=== PATIENT | female | born 2000 | race Caucasian/White ===

== ENCOUNTER 2024-01-21 14:45 | Emergency (ER) | payer SELFPAY ==
[~2024-01-21] VITALS: Ht 182.9 cm; Wt 72.1 kg
[2024-01-21] MEDS ORDERED: MORPHINE SULFATE INJ 4 MG/ML DISP.SYRIN ONE (15:31)
[2024-01-21] MEDS: MORPHINE SULFATE INJ 2 MG/ML DISP.SYRIN IV ONE (15:37)
[2024-01-21] MEDS ORDERED: HYDR-4209 PO (17:21)
[2024-01-21] MEDS ORDERED: KETO10TA2 PO (17:21)
[2024-01-21 17:28] VITALS: BP 131/74; TEMP 97.8; O2SAT 98
== END 2024-01-21 17:28 | disposition home or self-care (01) ==
LOC: ER 14:50
DX: S52.511A Displaced fracture of right radial styloid process, initial encounter for closed fracture (principal); V89.2XXA Person injured in unspecified motor-vehicle accident, traffic, initial encounter; Y93.89 Activity, other specified; Y92.410 Unspecified street and highway as the place of occurrence of the external cause; Y99.8 Other external cause status
CPT/HCPCS: 29125; 73110; 96374; 99283; J2270

== ENCOUNTER 2024-01-23 17:41 | Emergency (ER) | payer MEDICAID ==
[~2024-01-23] VITALS: Ht 182.9 cm; Wt 70.3 kg
[~2024-01-23 17:41] MED LIST: HYDR-4209 PO; KETO10TA2 PO
[2024-01-23 20:09] VITALS: BP 121/66; TEMP 98.2; O2SAT 99
== END 2024-01-23 20:09 | disposition home or self-care (01) ==
LOC: ER 17:49
DX: S16.1XXA Strain of muscle, fascia and tendon at neck level, initial encounter (principal); S39.012A Strain of muscle, fascia and tendon of lower back, initial encounter; Z79.899 Other long term (current) drug therapy; V89.2XXA Person injured in unspecified motor-vehicle accident, traffic, initial encounter; Y93.89 Activity, other specified; Y92.89 Other specified places as the place of occurrence of the external cause; Y99.8 Other external cause status
CPT/HCPCS: 72050-TC; 72110-TC